=== PATIENT | female | born 1985 | race Hispanic/Latino ===

== ENCOUNTER 2025-04-22 16:40 | Emergency (ER) | payer BC, OTHER ==
[~2025-04-22] VITALS: Ht 167.6 cm; Wt 65.0 kg
[~2025-04-22 16:40] MED LIST: AMOX TR-K CLV1 EAC1 PO; HYDROXYZINE HCL25 MG PO; PAROXETINE HCL10 MG PO
[2025-04-22] MEDS ORDERED: LORazepam 2 MG/ML VIAL ONE (16:44)
[2025-04-22] MEDS ORDERED: LORazepam 2 MG/ML VIAL IV ONE ×2 (17:00→23:45)
[2025-04-22 17:11] LABS: MCH 32.0 PG (25.6-32.2); MCHC 33.3 g/dL (32.2-35.5); MCV 96.3 fL (79.4-94.8); RBC 4.81 M/uL (3.93-5.22)
[2025-04-22 17:20] LABS: ALT (SGPT) 49.0 U/L (14-59); AST (SGOT) 135.0 U/L (15-37); GLOMERULAR FILTRATION RATE,EST 46.0 mL/min (>60); PROTEIN, TOTAL 7.8 g/dL (6.4-8.2); UREA NITROGEN 27.0 mg/dL (7-18)
[2025-04-22 17:32] LABS: BANDS, MANUAL DIFF 5; LYMPHOCYTES, MANUAL DIFF 5; NEUTROPHILS, MANUAL DIFF 90
[2025-04-22] MEDS ORDERED: POTASSIUM CHLORIDE 10 MEQ/100 ML BAG IV SCH (18:30)
[2025-04-22] MEDS ORDERED: SODIUM CHLORIDE 0.9% 1,000 ML IV PRN ×2 (18:30→19:15)
[2025-04-22 19:19] LABS: BLOOD/HGB, URINE LARGE (Negative); KETONE, URINE NEGATIVE (Negative); LEUK ESTERASE, URINE NEGATIVE (negative); NITRITE, URINE NEGATIVE (negative)
[2025-04-22 19:27] LABS: BACTERIA, URINE NONE SEEN /hpf (negative); CASTS, URINE GRANULAR 1+ \\lpf; CRYSTALS, URINE CALCIUM OXALATE 4+ (0-1+); EPITHELIAL CELLS, URINE SQUAMOUS 1+ /lpf (0-1+); REFLEX CULTURE, URINE No (No)
[2025-04-22] MEDS ORDERED: VANCOMYCIN HCL 1.5 GM in DEXTROSE 5% 250 ML IV ONE (19:30)
[2025-04-22 19:33] LABS: AMPHETAMINES, URINE NEGATIVE (NEGATIVE); BARBITURATES, URINE NEGATIVE (NEGATIVE); BENZODIAZEPINE, URINE NEGATIVE (NEGATIVE); CANNABINOID, URINE POSITIVE (NEGATIVE); COCAINE, URINE NEGATIVE (NEGATIVE); ECSTASY, URINE NEGATIVE (NEGATIVE); FENTANYL, URINE NEGATIVE (NEGATIVE); METHADONE, URINE NEGATIVE (NEGATIVE); OPIATES, URINE NEGATIVE (NEGATIVE); OXYCODONE, URINE NEGATIVE (NEGATIVE); PHENCYCLIDINE, URINE NEGATIVE (NEGATIVE)
[2025-04-22 20:00] LABS: LACTIC ACID, BLOOD 1.0 mmol/L (0.4-2.0)
[2025-04-22 20:13] LABS: GLUCOSE, CSF 146 mg/dL (40-70)
[2025-04-22 20:32] LABS: COLOR, CEREBROSPINAL FLUID CLEAR
[2025-04-22 20:33] LABS: CLARITY, CEREBROSPINAL FLUID CLEAR; RBC, CEREBROSPINAL FLUID 93 /mm3; WBC, CEREBROSPINAL FLUID < 1 /mm3
[2025-04-22] MEDS ORDERED: ACETAMINOPHEN 650 MG SUPP PR ONE (22:30)
[2025-04-22] MEDS ORDERED: LACTATED RINGER'S 1,000 ML IV SCH (23:00)
[2025-04-23] MEDS ORDERED: ACYCLOVIR SOD 500 MG/10 ML VIAL ONE (00:50)
[2025-04-23] MEDS ORDERED: LORazepam 2 MG/ML VIAL ONE (02:05)
[2025-04-23] MEDS ORDERED: ROCURONIUM BROMIDE 50 MG/5 ML SYR IV ONE (02:30)
[2025-04-23] MEDS ORDERED: ETOMIDATE 40 MG/20 ML VIAL IV ONE (02:30)
[2025-04-23] MEDS ORDERED: LORazepam 2 MG/ML VIAL IV ONE (02:30)
[2025-04-23 02:49] LABS: BASE EXCESS, BLOOD GAS -13.0 mmol/L (-2-2); HCO3, BLOOD GAS 15.2 mmol/L (22-26); O2 SATURATION, BLOOD GAS 95.4 % (95.0-100.0); OXYGEN RECEIVED, BLOOD GAS 35.0; PCO2, BLOOD GAS 41.2 mmHg (35-45); PH, BLOOD GAS 7.17 (7.35-7.45); PO2, BLOOD GAS 81.0 mmHg (80-100); TOTAL CO2, BLOOD GAS 16.4
[2025-04-23 03:15] VITALS: BP 133/99
--- NOTE | 2025-04-24 15:13 | EKG ---
[facility] [address] [place], [place] [address] Signed Sinus tachycardia Otherwise normal ECG Confirmed by KRISTIAN DOMINGUEZ MD ([id number]) on 04/24/2025 3:13:45 PM Electronically Signed By: KRISTIAN DOMINGUEZ 04/24/25 1513 PATIENT NAME: NICOLE TIDWELL KRISTEN Electrocardiogram DATE OF : 85 PHYSICIAN: KRISTIAN DOMINGUEZ REPORT #: [id number] REPORT IS CONFIDENTIAL AND NOT TO BE RELEASED WITHOUT AUTHORIZATION
[2025-04-27 13:37] LABS: HSV SUBTYPE SOURCE CSF (())
== END 2025-04-23 03:07 | disposition short-term general hospital (02) ==
LOC: ED 16:40
PROVIDERS: Emergency Medicine; Internal Medicine
DX: G93.40 Encephalopathy, unspecified (principal); R56.9 Unspecified convulsions; G93.5 Compression of brain; Z91.041 Radiographic dye allergy status; Z79.899 Other long term (current) drug therapy
CPT/HCPCS: 31500; 36415; 36600; 51702; 70450; 71045; 80053; 80307; 81001; 82803; 82945; 83605; 83735; 84157; 84703; 85025; 86140; 87070; 87075; 87205; 87529; 89051; 93005; 93010; 94799; 96365; 96366; 96368; 96375; 96376; 99285-25; A9270; J0133; J0696; J1953; J2060; J2704; J3373; J3480; J3490; J7030; J7060; J7121